=== PATIENT | male | born 1965 | race Caucasian/White ===

== ENCOUNTER 2016-11-19 11:17 | Emergency (ER) | payer OTHER ==
[~2016-11-19 11:17] MED LIST: AMITRIPTYLINE H25 MG PO; AMOXICILLIN875 MG PO; CIPRO500 MG PO; CLARITHROMYCIN500 M1 PO; LAC PO; NEU300 PO; OMEPRAZOLE40 M1 PO; TYLENOL EXTRA500 M2 PO
[2016-11-19 11:58] LABS: microscopic required? NO
[2016-11-19 12:06] LABS: BASOPHIL % 0.5 % (0-2); PLATELET COUNT 311 x10^3mcL (130-400); RED CELL DISTRIBUTION WIDTH 13.7 % (11.5-14.5)
[2016-11-19 12:17] LABS: CALCIUM 8.5 mg/dL (8.5-10.1); CARBON DIOXIDE 26.4 mmol/L (21-32); CHLORIDE SERUM 108 mmol/L (98-107); CREATININE SERUM 0.9 mg/dL (0.7-1.3); GFR1 > 60 mL/min; GLUCOSE SERUM 102 mg/dL (74-106); POTASSIUM SERUM 3.7 mmol/L (3.5-5.1); SODIUM SERUM 143 mmol/L (136-145)
[2016-11-19 12:21] LABS: ALBUMIN 3.6 g/dL (3.4-5.0); ALKALINE PHOSPHATASE 70 U/L (46-116); ALT/SGPT 244 U/L (16-63); AST/SGOT 112 U/L (15-37); BILIRUBIN TOTAL 0.49 mg/dL (0.20-1.00); LIPASE 94 IU/L (73-393); TOTAL PROTEIN, SERUM 8.1 g/dL (6.4-8.2)
[2016-11-19 12:33] LABS: UA SPECIFIC GRAVITY 1.025 (1.005-1.035); urine erythrocyte NEGATIVE (NEGATIVE)
[2016-11-19 13:58] VITALS: BP 144/85
== END 2016-11-19 14:34 | disposition home or self-care (01) ==
LOC: ED 11:17
PROVIDERS: Emergency Medicine
DX: R10.30 Lower abdominal pain, unspecified (principal); F17.210 Nicotine dependence, cigarettes, uncomplicated; F41.9 Anxiety disorder, unspecified; M54.9 Dorsalgia, unspecified; F15.90 Other stimulant use, unspecified, uncomplicated
CPT/HCPCS: J2060; J2270; J2405; J7030; Q9967

== ENCOUNTER 2016-11-26 04:18 | Inpatient (IN) | payer OTHER ==
[~2016-11-26] VITALS: Ht 182.9 cm; Wt 86.2 kg
[2016-11-26 05:27] LABS: BASOPHIL % 0.4 % (0-2); PLATELET COUNT 295 x10^3mcL (130-400); RED CELL DISTRIBUTION WIDTH 13.8 % (11.5-14.5)
[2016-11-26 05:31] LABS: CALCIUM 8.8 mg/dL (8.5-10.1); CARBON DIOXIDE 27.5 mmol/L (21-32); CHLORIDE SERUM 103 mmol/L (98-107); CREATININE SERUM 0.9 mg/dL (0.7-1.3); GFR1 > 60 mL/min; GLUCOSE SERUM 112 mg/dL (74-106); POTASSIUM SERUM 3.4 mmol/L (3.5-5.1); SODIUM SERUM 136 mmol/L (136-145)
[2016-11-26 05:42] LABS: ALBUMIN 3.8 g/dL (3.4-5.0); ALKALINE PHOSPHATASE 74 U/L (46-116); ALT/SGPT 271 U/L (16-63); AST/SGOT 114 U/L (15-37); BILIRUBIN TOTAL 0.6 mg/dL (0.20-1.00); T4(THYROXINE) 8.5 ug/dL (4.7-13.3)
[2016-11-26 05:43] LABS: AMPHETAMINE QUAL UR POSITIVE (NEG <=1000)
[2016-11-26 05:51] LABS: TOTAL PROTEIN, SERUM 8.3 g/dL (6.4-8.2)
[2016-11-26 07:39] LABS: PHOSPHOROUS 3.2 mg/dL (2.5-4.9)
[2016-11-26 07:43] VITALS: BP 132/94
[2016-11-26 07:44] LABS: CHOLESTEROL/HDL RATIO 2.3
[2016-11-26 08:01] LABS: UA SPECIFIC GRAVITY >=1.030 (1.005-1.035); microscopic required? YES; urine erythrocyte TRACE (NEGATIVE)
[2016-11-26 11:40] VITALS: BP 144/97
[2016-11-26 15:34] VITALS: BP 133/77
[2016-11-26 19:05] VITALS: BP 125/80
[2016-11-26 23:00] VITALS: BP 111/73
[2016-11-27 03:44] VITALS: BP 121/79
[2016-11-27 05:32] LABS: BASOPHIL % 0.4 % (0-2); PLATELET COUNT 267 x10^3mcL (130-400)
[2016-11-27 05:51] LABS: CALCIUM 7.8 mg/dL (8.5-10.1); CARBON DIOXIDE 28.3 mmol/L (21-32); CHLORIDE SERUM 103 mmol/L (98-107); CREATININE SERUM 0.8 mg/dL (0.7-1.3); GFR1 > 60 mL/min; GLUCOSE SERUM 92 mg/dL (74-106); MAGNESIUM 2.1 mg/dL (1.8-2.4); PHOSPHOROUS 3.3 mg/dL (2.5-4.9); SODIUM SERUM 136 mmol/L (136-145)
[2016-11-27 07:56] VITALS: BP 116/80
[2016-11-27 09:02] VITALS: Ht 182.9 cm; Wt 86.2 kg
[2016-11-27 12:11] VITALS: BP 123/77
[2016-11-27 20:54] VITALS: BP 126/79
[2016-11-27 23:30] VITALS: BP 122/79
[2016-11-28 05:25] LABS: PLATELET COUNT 258 x10^3mcL (130-400); RED CELL DISTRIBUTION WIDTH 14.3 % (11.5-14.5)
[2016-11-28 06:02] LABS: CALCIUM 8.3 mg/dL (8.5-10.1); CARBON DIOXIDE 25.2 mmol/L (21-32); CHLORIDE SERUM 105 mmol/L (98-107); CREATININE SERUM 0.8 mg/dL (0.7-1.3); GFR1 > 60 mL/min; GLUCOSE SERUM 89 mg/dL (74-106); MAGNESIUM 2.1 mg/dL (1.8-2.4); POTASSIUM SERUM 4.3 mmol/L (3.5-5.1); SODIUM SERUM 139 mmol/L (136-145)
[2016-11-28 06:08] LABS: BAND NEUTROPHIL 3 % (0-10); MONOCYTE 9 % (0-7); SEGMENTED NEUTROPHILS 61 % (37-75); rbc morphology (normal/abnorm) NORMAL (NORMAL)
[2016-11-28 06:09] LABS: PLATELET MORPHOLOGY PLATELETS NORMAL
[2016-11-28 07:10] VITALS: BP 132/79
[2016-11-28 12:50] VITALS: BP 147/87
== END 2016-11-28 15:45 | disposition left against medical advice (07) | DRG 812 ==
LOC: ED 04:18 → IC 06:16 → DU 06:16 → IC 06:16
PROVIDERS: Emergency Medicine; ADMIT Family Medicine
DX: T43.621A Poisoning by amphetamines, accidental (unintentional), initial encounter (principal); N17.0 Acute kidney failure with tubular necrosis; G92 Toxic encephalopathy; R45.851 Suicidal ideations; K71.11 Toxic liver disease with hepatic necrosis, with coma; E87.6 Hypokalemia; F15.221 Other stimulant dependence with intoxication delirium; F33.3 Major depressive disorder, recurrent, severe with psychotic symptoms; F20.9 Schizophrenia, unspecified; F15.251 Other stimulant dependence with stimulant-induced psychotic disorder with hallucinations; R73.03 Prediabetes; K40.91 Unilateral inguinal hernia, without obstruction or gangrene, recurrent; F12.10 Cannabis abuse, uncomplicated; F17.210 Nicotine dependence, cigarettes, uncomplicated; Z68.24 Body mass index [BMI] 24.0-24.9, adult; Z56.0 Unemployment, unspecified; Z59.0 Homelessness; Y92.89 Other specified places as the place of occurrence of the external cause
CPT/HCPCS: 82962; 83880; G0480; J2060; J2270; J3411; J3475; J3490; J7030; Q0092

== ENCOUNTER 2017-02-11 22:57 | Emergency (ER) | payer OTHER ==
[2017-02-12 01:11] LABS: BASOPHIL % 0.7 % (0-2); PLATELET COUNT 292 x10^3mcL (130-400); RED CELL DISTRIBUTION WIDTH 13.8 % (11.5-14.5)
[2017-02-12 01:19] LABS: CALCIUM 8.7 mg/dL (8.5-10.1); CARBON DIOXIDE 29.5 mmol/L (21-32); CHLORIDE SERUM 103 mmol/L (98-107); GFR1 > 60 mL/min; GLUCOSE SERUM 120 mg/dL (74-106); POTASSIUM SERUM 3.6 mmol/L (3.5-5.1); SODIUM SERUM 140 mmol/L (136-145)
[2017-02-12 01:24] LABS: ALBUMIN 3.5 g/dL (3.4-5.0); ALKALINE PHOSPHATASE 54 U/L (46-116); ALT/SGPT 43 U/L (16-63); AMYLASE 52 U/L (25-115); AST/SGOT 31 U/L (15-37); BILIRUBIN TOTAL 0.36 mg/dL (0.20-1.00); LIPASE 96 IU/L (73-393)
[2017-02-12 03:35] VITALS: BP 120/64
== END 2017-02-12 03:35 | disposition home or self-care (01) ==
LOC: ED 22:57
PROVIDERS: Emergency Medicine
DX: R10.30 Lower abdominal pain, unspecified (principal); G89.29 Other chronic pain; M54.9 Dorsalgia, unspecified
CPT/HCPCS: 36415; 83880; J3010; Q0162

== ENCOUNTER 2017-03-16 13:05 | Emergency (ER) | payer OTHER ==
[2017-03-16 16:33] VITALS: BP 125/70
== END 2017-03-16 16:33 | disposition home or self-care (01) ==
LOC: ED 13:05
DX: S29.8XXA Other specified injuries of thorax, initial encounter (principal); F17.210 Nicotine dependence, cigarettes, uncomplicated; F10.20 Alcohol dependence, uncomplicated; G89.29 Other chronic pain; M54.9 Dorsalgia, unspecified; Z71.6 Tobacco abuse counseling; V87.8XXA Person injured in other specified noncollision transport accidents involving motor vehicle (traffic), initial encounter; Y93.89 Activity, other specified; Y99.8 Other external cause status; Y92.89 Other specified places as the place of occurrence of the external cause
CPT/HCPCS: 90715; 94150; 99406; J3010; J7030

== ENCOUNTER 2017-03-18 13:43 | Emergency (ER) | payer OTHER ==
[~2017-03-18] VITALS: Ht 182.9 cm; Wt 75.7 kg
[2017-03-18 14:10] VITALS: BP 120/78
== END 2017-03-18 16:33 | disposition home or self-care (01) ==
LOC: ED 13:43
DX: S39.011A Strain of muscle, fascia and tendon of abdomen, initial encounter (principal); F15.20 Other stimulant dependence, uncomplicated; F17.210 Nicotine dependence, cigarettes, uncomplicated; Z71.6 Tobacco abuse counseling; Z59.0 Homelessness; X58.XXXA Exposure to other specified factors, initial encounter; Y93.89 Activity, other specified; Y99.8 Other external cause status; Y92.89 Other specified places as the place of occurrence of the external cause
CPT/HCPCS: 99406